=== PATIENT | male | born 1955 | race Caucasian/White ===

== ENCOUNTER 2024-06-29 12:22 | Emergency (ER) | payer MEDICARE ==
[~2024-06-29] VITALS: Ht 167.6 cm; Wt 63.5 kg
[2024-06-29 12:28] VITALS: O2SAT 98
[2024-06-29 12:35] VITALS: BP 94/67; PULSE 65; RESP 16; TEMP 36.7; O2SAT 98
[2024-06-29] MEDS ORDERED: IBUP-2029 MT (15:38)
[2024-06-29] MEDS ORDERED: LIDO700A30 TP (15:38)
[2024-06-29] MEDS: LIDOCAINE 5% PATCH TOP SCH (15:45)
[2024-06-29] MEDS: CYCLOBENZAPRINE 10MG TABLET PO STA (16:19)
[2024-06-29] MEDS: KETOROLAC 15MG/ML VIAL IV ONE (16:19)
== END 2024-06-29 16:18 | disposition home or self-care (01) ==
LOC: ER 12:22
DX: M62.838 Other muscle spasm (principal); E11.9 Type 2 diabetes mellitus without complications; I10 Essential (primary) hypertension; I25.2 Old myocardial infarction; Z79.899 Other long term (current) drug therapy; Z98.890 Other specified postprocedural states
CPT/HCPCS: 71045; 99283